=== PATIENT | female | born 1990 | race American Indian/Alaskan Native ===

== ENCOUNTER 2018-01-25 17:36 | Emergency (ER) | payer BC ==
[2018-01-25 17:54] VITALS: BP 137/74
--- NOTE | 2018-01-25 21:48 | Emergency Department Report ---
Minor Respiratory - HPI Chief Complaint: Neck Pain/Injury Stated Complaint: KNOT/RIGHT SIDE OF NECK Time Seen by Provider: 01/25/18 21:35 Duration: 3 weeks Pain Location: Facial, Throat Severity: severe (A to 9 out of 10) Minor Respiratory: Yes Rhinorrhea (nasal congestion), Yes Sore Throat, Yes Able to Tolerate Fluids, Yes Cough (dry cough), No Ear Pain (clogged ear sensation), No Sick Contacts, No Hemoptysis, No Chest Pain, No Shortness of Breath, No Fever (report that she feels like she has chills) Other History: This is a 28-year-old patient here complaining of sinus symptoms over the last 3 weeks. She says she feels like there is are not to both sides of her neck. She says she has been taking in [id number] medication and its not helping. Pain is 8-9 out of 10 feels sore and achy. Pain is worse with swallowing and cough in the throat pain to neck is worse with movement. No alleviating factor. Patient's reported that she has facial congestion and when she wakes up in the morning her eyes are swollen and but denies any eye pain. Denies any shortness of breath or chest pain. Report nasal congestion and runny nose. ED Review of Systems ROS: Stated complaint: KNOT/RIGHT SIDE OF NECK Other details as noted in HPI Constitutional: chills. denies: fever Eyes: eye discharge. denies: eye pain, vision change ENT: throat pain, congestion, other (talk to your sensation). denies: ear pain , dental pain, hearing loss, epistaxis Respiratory: cough (I). denies: orthopnea, shortness of breath, SOB with exertion, SOB at rest, stridor, wheezing Cardiovascular: denies: chest pain, palpitations Endocrine: no symptoms reported Gastrointestinal: denies: nausea, vomiting Musculoskeletal: denies: back pain, joint swelling, arthralgia, myalgia Skin: denies: rash, lesions Neurological: headache. denies: weakness, numbness, paresthesias, abnormal gait , vertigo ED Past Medical Hx - Past Medical History Previous Medical History?: No - Surgical History Past Surgical History?: No - Family History Family history: hypertension - Social History Smoking Status: Light Tobacco Smoker Substance Use Type: Alcohol - Medications Home Medications: Home Medications Medication Instructions Recorded Confirmed Last Taken Type Amoxicillin/K Clav Tab [Augmentin 1 tab PO Q12HR 6 Days #1 pack 01/25/18 Unknown Rx 875 mg] Cetirizine HCl [ZyrTEC] 10 mg PO QDAY 14 Days #14 capsule 01/25/18 Unknown Rx Fluticasone [Flonase] 1 spray NS QDAY 14 Days #1 bottle 01/25/18 Unknown Rx Ibuprofen [Motrin] 600 mg PO Q8H PRN #12 tablet 01/25/18 Unknown Rx methylPREDNISolone [Medrol] 4 mg PO QAM 6 Days #1 tab.ds.pk 01/25/18 Unknown Rx Minor Respiratory Exam - Exam General: Vital signs noted. No distress. Alert and acting appropriately. This is a 28-year-old female well-nourished well-developed in no acute distress. HEENT: Yes Moist Mucous Membranes (uvula midline and oral airways patent), Yes Rhinorrhea (congested with erythema. There is drainage), Yes Frontal Tenderness , Yes Maxillary Tenderness, No Pharyngeal Erythema (no pharyngeal swelling), No Pharyngeal Exudates (no peritonsillar abscess), No Conjuctival Injection Ear: Neither TM Bulge (bilateral TM congested without erythema), Neither TM Erythema, Neither EAC Pain, Neither EAC Discharge Neck: Yes Adenopathy (positive anterior cervical adenopathy ), Yes Supple (full range of motion and no C-spine tenderness) Lungs: Yes Good Air Exchange (CTAB), Yes Cough (dry cough), No Wheezes, No Ronchi, No Stridor, No Labored Respirations, No Retractions, No Use of Accessory Muscles, No Other Abnormal Lung Sounds Heart: Yes Regular (tachycardic at 116 but apical pulse rate is at 100.), No Murmur Abdomen: Yes Normal Bowel Sounds (in all quadrants), No Tenderness (NTTP in all quadrants), No Peritoneal Signs Skin: No Rash, No Edema Neurologic: Alert and oriented, no deficits. Alert and oriented 3, normal gait and normal speech. Musculoskeletal: Unremarkable. No clubbing, cyanosis or edema. +2 pulses to all extremities ED Course Vital Signs 01/25/18 17:49 Temperature 98.5 F Pulse Rate 116 H Respiratory 20 Rate Blood Pressure 137/74 O2 Sat by Pulse 100 Oximetry Apical pulse rate prior to discharge is 100 - Reevaluation(s) Reevaluation #1: 01/25/18 22:48 Given Deltasone 60 mg by mouth emergency room. ED Medical Decision Making - Medical Decision Making ED course 28-year-old female came to the emergency room reporting 3 weeks history of dry cough, swelling to her neck, facial pain and pressure, sore throat and crusty eyes in the morning. She's been taking [id number] sinus medication without any relief and here to be seen. I examined patient and she is in stable condition. Pain is better with prednisone 60 mg by mouth. I discussed the patient her diagnosis and she voiced understanding. A/P 1: Acute bacterial rhinosinusitis -patient given Deltasone 60 mg by mouth and emergency room and was sent home on antibiotic, steroid I 2: Upper respiratory infection with cough and congestion - patient will be discharged home on Zyrtec and Flonase and instructed on saline nasal wash. 3: Acute pharyngitis: She will be discharged home on Motrin Prescription for Augmentin, Motrin, Flonase and Zyrtec. Medrol Dosepak She is educated on diagnosis, medication,and need to follow-up.Referral given for primary care Patient heart rate was at 116 in triage and apical heart rate is 100 prior to discharge. Patient discharged home in stable condition and pain is controlled. Vital signs are stable and is afebrile. Patient to follow-up with primary care physician in 2-3 days. . I also instructed him that if her symptoms worsen to return to the emergency room DEE DEE. She voiced understanding and discharge instruction and discharged home from ED in stable condition Critical care attestation.: If time is entered above; I have spent that time in minutes in the direct care of this critically ill patient, excluding procedure time. ED Disposition Clinical Impression: Acute bacterial rhinosinusitis, Upper respiratory infection with cough and congestion Pharyngitis Qualifiers: Pharyngitis/tonsillitis etiology: unspecified etiology Qualified Code(s): J02.9 - Acute pharyngitis, unspecified Disposition: -01 TO HOME OR SELFCARE Is pt being admited?: No Does the pt Need Aspirin: No Condition: Stable Instructions: Acute Bacterial Rhinosinusitis (ED), Upper Respiratory Infection (ED), Pharyngitis (ED) Additional Instructions: Please follow up with primary care physician in 2-3 days. Take antibiotic and other medication as prescribed She is sinus out with saline nasal washes to relieve congestion Increase your fluid intake If is symptoms worsen, return to the emergency room Prescriptions: Amoxicillin/K Clav Tab [Augmentin 875 mg] 1 tab PO Q12HR 6 Days #1 pack Cetirizine HCl [ZyrTEC] 10 mg PO QDAY 14 Days #14 capsule Fluticasone [Flonase] 1 spray NS QDAY 14 Days #1 bottle Ibuprofen [Motrin] 600 mg PO Q8H PRN #12 tablet PRN Reason: Pain methylPREDNISolone [Medrol] 4 mg PO QAM 6 Days #1 tab.ds.pk Referrals: PRIMARY CARE, [Primary Care Provider] - 2-3 Days [facility] [Outside] - 2-3 Days Forms: Work/School Release Form(ED)
[2018-01-25] MEDS ORDERED: DELTASONE PO ONE (21:55)
== END 2018-01-25 23:20 | disposition home or self-care (01) ==
LOC: ED 17:36
DX: J02.9 Acute pharyngitis, unspecified (principal); J01.90 Acute sinusitis, unspecified; F17.200 Nicotine dependence, unspecified, uncomplicated
CPT/HCPCS: 99282; J7512

== ENCOUNTER 2018-04-15 01:40 | Emergency (ER) | payer BC, OTHER ==
[2018-04-15 02:20] VITALS: BP 132/55
[2018-04-15] MEDS ORDERED: ASPIRIN PO ONE (02:20)
[2018-04-15 02:54] LABS: Basophils # (Auto) 0.1 K/mm3 (0.0-0.1); Basophils % (Auto) 0.8 % (0.0-1.8); Eosinophils # (Auto) 0.3 K/mm3 (0.0-0.4); Eosinophils % (Auto) 3.9 % (0.0-4.3); Hematocrit 34.4 % (30.3-42.9); Hemoglobin 11.4 gm/dl (10.1-14.3); Lymphocytes # (Auto) 1.9 K/mm3 (1.2-5.4); Lymphocytes % (Auto) 28.2 % (13.4-35.0); Mean Corpuscular HGB Conc 33 % (30-34); Mean Corpuscular Volume 78 fl (79-97); Monocytes # (Auto) 0.9 K/mm3 (0.0-0.8); Monocytes % (Auto) 12.9 % (0.0-7.3); Platelet Count 209 K/mm3 (140-440); Red Blood Count 4.41 M/mm3 (3.65-5.03); Red Cell Distribution Width 14.3 % (13.2-15.2)
[2018-04-15 03:16] LABS: Mean Corpuscular Hemoglobin 26 pg (28-32)
[2018-04-15 03:19] LABS: BUN/Creatinine Ratio 40; Blood Urea Nitrogen 8 mg/dL (7-17); Calcium 10.1 mg/dL (8.4-10.2); Hemolysis Index 29
== END 2018-04-15 02:35 | disposition left against medical advice (07) ==
LOC: ED 01:40
DX: R10.9 Unspecified abdominal pain (principal); Z53.21 Procedure and treatment not carried out due to patient leaving prior to being seen by health care provider
CPT/HCPCS: 36415; 80048; 83880; 84443; 84484; 84703; 85025; 93005; 93010